=== PATIENT | female | born 1935 | race Caucasian/White ===

== ENCOUNTER 2017-09-14 12:30 | Outpatient (CLI) | payer MEDICARE, OTHER ==
[~2017-09-14 12:30] MED LIST: BABY ASPIRIN81 MG PO; BENADRYL25 MG; OYSCO 500+D TAB1 TAB; PEPCID20 MG; SYNTHROID50 MCG PO; VITAMIN B COMPL1 TA1; VITAMIN D3400 UNI1; ZOCOR40 MG; [UNRECOGNIZED DRUG - REMARK]
[2017-09-14 13:47] VITALS: BP 138/45; BMI 22.0
== END 2017-09-14 13:55 | disposition home or self-care (01) ==
LOC: D.OPS 12:30
DX: M81.0 Age-related osteoporosis without current pathological fracture (principal)

== ENCOUNTER 2018-03-07 11:48 | Outpatient (CLI) | payer MEDICARE, OTHER ==
[~2018-03-07] VITALS: Ht 157.5 cm
[2018-03-07 12:35] VITALS: BP 83/56; Ht 157.5 cm
== END 2018-03-07 12:37 ==
LOC: D.OPS 11:48
DX: M81.0 Age-related osteoporosis without current pathological fracture (principal)

== ENCOUNTER → 2018-09-07 12:31 | Outpatient (CLI) | payer MEDICARE, OTHER ==
[~2018-09-07] VITALS: Ht 157.5 cm; Wt 56.8 kg
[2018-09-07 13:48] VITALS: BP 136/71; Ht 157.5 cm; Wt 56.8 kg
== END | disposition home or self-care (01) ==
LOC: D.OPS 12:31
DX: M81.0 Age-related osteoporosis without current pathological fracture (principal); Z01.812 Encounter for preprocedural laboratory examination

== ENCOUNTER 2019-03-22 12:17 | Outpatient (CLI) | payer MEDICARE, OTHER ==
[~2019-03-22] VITALS: Ht 157.5 cm; Wt 60.0 kg
[2019-03-22 14:01] VITALS: Ht 157.5 cm; Wt 60.0 kg
== END 2019-03-22 14:16 ==
LOC: D.OPS 12:17
PROVIDERS: ATTEND Family Medicine
DX: M81.0 Age-related osteoporosis without current pathological fracture (principal)